=== PATIENT | female | born 1995 | race Asian ===

== ENCOUNTER 2017-10-03 13:20 | Emergency (ER) | payer OTHER ==
[~2017-10-03] VITALS: Ht 162.6 cm; Wt 64.8 kg
[2017-10-03 13:26] VITALS: BP 119/78
[2017-10-03] MEDS ORDERED: DIPH,PERTUSS(ACELL),TET VAC/PF 0.5 ML IM-VACC ONE ×2 (14:30→14:42)
[2017-10-03] MEDS ORDERED: LIDOCAINE 1%, 20ML SQ ONE (14:30)
[2017-10-03] MEDS ORDERED: BACITRACIN ZINC OINT 500U/GM, 0.9 GM ONE (15:06)
== END 2017-10-03 15:30 | disposition home or self-care (01) ==
LOC: ED 15:00
DX: S81.811A Laceration without foreign body, right lower leg, initial encounter (principal); W19.XXXA Unspecified fall, initial encounter; Y93.23 Activity, snow (alpine) (downhill) skiing, snowboarding, sledding, tobogganing and snow tubing; Y99.8 Other external cause status; Y92.89 Other specified places as the place of occurrence of the external cause
CPT/HCPCS: 12002; 90471; 90715; 99284

== ENCOUNTER 2021-05-31 08:48 | Emergency (ER) | payer BC, OTHER ==
[~2021-05-31] VITALS: Ht 162.6 cm; Wt 70.0 kg
--- NOTE | 2021-05-31 08:57 | NUR ---
group home counselor: c-collar placed in triage
--- NOTE | 2021-05-31 10:21 | NUR ---
[facility] RESIDENT; PT TO ROOM FROM LOBBY VIA W/C. PT PROVIDED WITH ICE PACKS
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
[2021-05-31] MEDS ORDERED: METHOCARBAMOL 750 MG TABLET ONE (10:57)
[2021-05-31] MEDS ORDERED: ACETAMINOPHEN 500 MG TABLET ONE (10:57)
[2021-05-31] MEDS ORDERED: ACETAMINOPHEN 500 MG TABLET PO ONE (11:00)
[2021-05-31] MEDS ORDERED: METHOCARBAMOL 750 MG TABLET PO ONE (11:00)
--- NOTE | 2021-05-31 11:41 | NUR ---
PT TO XR AT THIS TIME.
[2021-05-31 11:45] VITALS: BP 121/74
== END 2021-05-31 12:51 | disposition home or self-care (01) ==
LOC: ED 09:00
DX: S63.501A Unspecified sprain of right wrist, initial encounter (principal); S16.1XXA Strain of muscle, fascia and tendon at neck level, initial encounter; S09.90XA Unspecified injury of head, initial encounter; V49.49XA Driver injured in collision with other motor vehicles in traffic accident, initial encounter; Y93.89 Activity, other specified; Y92.410 Unspecified street and highway as the place of occurrence of the external cause; Y99.8 Other external cause status
CPT/HCPCS: 29125; 72125; 99284